=== PATIENT | male | born 1980 | race Caucasian/White ===

== ENCOUNTER 2016-09-24 15:41 | Emergency (ER) | payer MEDICAID ==
[2016-09-24 16:12] VITALS: BP 129/82
--- NOTE | 2016-09-24 16:30 | UC ---
Skin Complaint HPI - History of Current Complaint Chief Complaint: [facility]kin Time Seen by Provider: 09/24/16 16:18 Stated Complaint: MULTIPLE BEE STINGS ANKLE/ARM/BACK Hx Obtained From: Patient Onset/Duration: Sudden Onset - Multiple bee stings 1 hour [employer]., Still Present - still itching and redness. Skin Exposure Onset/Duration: Hours Ago - 1 Onset Severity: Severe Current Severity: Moderate Location: Diffuse - left ankle right leg, right arm, back. Character: Swelling, Pruritus, Pain, Painful - left ankle with burning pain. Aggravating: Nothing Alleviating: Cold Associated Signs & Symptoms: Negative: Nausea, Vomiting, Shivering, Wheezing, Hoarseness, Throat Tightening, Abdominal Pain, Lightheadedness, Syncope Related History: Insect Bite/Sting - Bees, ? wasp, ground bees. - Allergy/Home Medications Allergies/Adverse Reactions: Allergies Allergy/AdvReac Type Severity Reaction Status Date / Time No Known Allergies Allergy Verified 09/24/16 15:54 Home Medications: Home Medications Atorvastatin* [Lipitor 10 MG*] 10 mg QPM 09/24/16 [History Confirmed 09/24/16] Sitagliptin Phosphate [Januvia] 100 mg QPM 09/24/16 [History Confirmed 09/24/16] Review of Systems Skin: Rash - just the bee stings. ENT: Nasal Discharge Respiratory: Cough - for the last 3 days with post nasal drip Neurological: Paresthesia - Left ankle All Other Systems Reviewed And Are Negative: Yes PMH/Surg Hx/FS Hx/Imm Hx Endocrine History: Diabetes, Dyslipidemia - Surgical History Surgical History: Yes Surgery Procedure, Year, and Place: RIGHT LEG FX, LONA INSERTION,. LONA ALSO IN RT TOE - Family History Known Family History: Positive: Hypertension, Diabetes Negative: Cardiac Disease - Social History Occupation: Employed Full-time Lives: With Family Alcohol Use: Rare Substance Use Type: None Smoking Status (MU): Heavy Every Day Tobacco Smoker Type: Cigarettes Amount Used/How Often: 1/2 TO 1 PPD Have You Smoked in the Last Year: Yes Household Exposure Type: Cigarettes Physical Exam Triage Information Reviewed: Yes Appearance: Well-Appearing, No Pain Distress, Well-Nourished Vital Signs: Initial Vital Signs Temp 98.6 F 09/24/16 15:46 Pulse 111 09/24/16 15:46 Resp 18 09/24/16 15:46 BP 129/82 09/24/16 15:46 Pulse Ox 98 09/24/16 15:46 Vital Signs Reviewed: Yes Eyes: Positive: Conjunctiva Clear ENT: Positive: Pharynx normal, TMs normal Neck exam: Normal Respiratory: Positive: Lungs clear Cardiovascular Exam: Normal Musculoskeletal Exam: Normal Neurological: Positive: Other: - Hyperaesthesia to pinprick on the left ankle, just distal to the sting. Psychological Exam: Normal Skin: Positive: rashes - bee sting venom reactions at the sting sites. Course/Dx - Differential Diagnoses - Skin Complaint Differential Diagnoses: Allergic Reaction, Anaphylaxis, Local Allergic Reaction - Diagnoses Provider Diagnoses: Multiple bee stings. Neuritis Discharge - Discharge Plan Condition: Stable Disposition: HOME Patient Education Materials: Insect Bite or Sting (ED), Diphenhydramine (By mouth) Additional Instructions: The irritated nerve, neuritis, at the left ankle should slowly resolve.
[2016-09-24] MEDS ORDERED: diPHENhydraMINE PO* 50 MG PO ONE (16:31)
== END 2016-09-24 16:55 | disposition home or self-care (01) ==
LOC: UCCORT 15:41
DX: T63.441A Toxic effect of venom of bees, accidental (unintentional), initial encounter (principal); M79.89 Other specified soft tissue disorders; Y92.9 Unspecified place or not applicable; M79.2 Neuralgia and neuritis, unspecified; R09.82 Postnasal drip; R05 Cough; R20.9 Unspecified disturbances of skin sensation; E11.9 Type 2 diabetes mellitus without complications; E78.5 Hyperlipidemia, unspecified; F17.210 Nicotine dependence, cigarettes, uncomplicated
CPT/HCPCS: 99212; A9270-GY; G0463

== ENCOUNTER 2017-03-28 10:00 | Emergency (ER) | payer MEDICAID, OTHER ==
[2017-03-28 10:44] VITALS: BP 119/72
--- NOTE | 2017-03-28 10:51 | UC ---
Skin Complaint HPI - HPI Summary HPI Summary: BOIL RIGHT LOWER LIP X 3 DAYS + PAIN AND SWELLING , + DISCHARGE YESTERDAY , GETTING WORSE TODAY NO FEVER, NO CHILLS - History of Current Complaint Chief Complaint: U[facility]kin Time Seen by Provider: 03/28/17 10:43 Stated Complaint: SKIN COMPLAINT Hx Obtained From: Patient Onset/Duration: Gradual Onset, Lasting Days - 3, Still Present, Worse Since - TODAY Timing: Constant Onset Severity: Mild Current Severity: Moderate Pain Intensity: 1 Location: Discrete - RIGHT LOWER LIP Character: Swelling, Pain, Redness, Raised, Painful Aggravating Factor(s): Touch Alleviating Factor(s): Nothing Associated Signs & Symptoms: Positive: Numbness, Tenderness. Negative: Nausea, Vomiting, Weakness, Pallor, Shivering, Fever, Chills - Allergy/Home Medications Allergies/Adverse Reactions: Allergies Allergy/AdvReac Type Severity Reaction Status Date / Time No Known Allergies Allergy Verified 03/28/17 10:44 Review of Systems Constitutional: Negative Eyes: Negative ENT: Negative Respiratory: Negative Cardiovascular: Negative Is Patient Immunocompromised?: No All Other Systems Reviewed And Are Negative: Yes PMH/Surg Hx/FS Hx/Imm Hx Endocrine History: Diabetes - Surgical History Surgical History: Yes Surgery Procedure, Year, and Place: RIGHT LEG FX, LONA INSERTION,. LONA ALSO IN RT TOE - Family History Known Family History: Positive: None, Hypertension, Diabetes Negative: Cardiac Disease - Social History Alcohol Use: Occasionally Substance Use Type: None Smoking Status (MU): Light Every Day Tobacco Smoker Type: Cigarettes Amount Used/How Often: 1/2 PPD Have You Smoked in the Last Year: Yes Household Exposure Type: Cigarettes Physical Exam Triage Information Reviewed: Yes Appearance: Well-Appearing, No Pain Distress, Well-Nourished Vital Signs: Initial Vital Signs Temp 98.3 F 03/28/17 10:36 Pulse 83 03/28/17 10:36 Resp 18 03/28/17 10:36 BP 119/72 03/28/17 10:36 Pulse Ox 98 03/28/17 10:36 Eye Exam: Normal Eyes: Positive: Conjunctiva Clear ENT: Positive: Normal ENT inspection, Hearing grossly normal, Pharynx normal Neck: Positive: Supple, Nontender, No Lymphadenopathy Respiratory: Positive: Chest non-tender, Lungs clear, Normal breath sounds, No respiratory distress Cardiovascular Exam: Normal Cardiovascular: Positive: RRR, No Murmur, Pulses Normal Skin: Positive: Other - ABSCESS RIGHT LOWER LIP , + ERYTHEMA, SWOLLEN , TENDER , MILD DISCHARGE Course/Dx - Diagnoses Provider Diagnoses: ABSCESS LIP Discharge - Discharge Plan Condition: Stable Disposition: HOME Prescriptions: Cephalexin CAP* [Keflex CAP*] 500 mg PO TID #30 cap Patient Education Materials: Abscess (ED) Referrals: No Primary Care Phys,NOPCP [Primary Care Provider] - If Needed
== END 2017-03-28 10:50 | disposition home or self-care (01) ==
LOC: UCCORT 10:00
DX: K13.0 Diseases of lips (principal); F17.210 Nicotine dependence, cigarettes, uncomplicated
CPT/HCPCS: 99212; G0463

== ENCOUNTER 2019-01-30 11:51 | Emergency (ER) | payer OTHER | END 2019-01-30 12:09 | disposition left against medical advice (07) | LOC: UCCORT 11:51 | DX: Z53.21 Procedure and treatment not carried out due to patient leaving prior to being seen by health care provider (principal) ==